=== PATIENT | male | born 1955 | race Two or more races ===

== ENCOUNTER 2022-05-25 09:40 | Day surgery (SDC) | payer OTHER ==
[~2022-05-25] VITALS: Ht 172.7 cm; Wt 90.7 kg
[~2022-05-25 09:40] MED LIST: AVAPRO300 MG PO; METFORMIN HCL1000 M2 PO
== END 2022-05-25 19:20 | disposition home or self-care (01) ==
LOC: CIR.AMB 09:40
PROVIDERS: ATTEND Urology
DX: N47.1 Phimosis (principal); N47.7 Other inflammatory diseases of prepuce; Z20.822 Contact with and (suspected) exposure to COVID-19; E11.9 Type 2 diabetes mellitus without complications; I10 Essential (primary) hypertension; Z79.84 Long term (current) use of oral hypoglycemic drugs

== ENCOUNTER 2022-06-25 21:26 | Inpatient (IN) | payer OTHER ==
[~2022-06-25] VITALS: Ht 165.1 cm; Wt 113.4 kg
[2022-06-29] MEDS ORDERED: MOTION SICKNESS25 M5 (08:35)
[2022-06-29] MEDS ORDERED: IRBESARTAN150 MG (08:36)
[2022-06-29] MEDS ORDERED: AMLODIPINE BESYL5 MG (08:36)
[2022-06-29] MEDS ORDERED: ONDANSETRON HCL4 MG (08:36)
[2022-06-29] MEDS ORDERED: ALBUTEROL S5 MG/1 ML (08:36)
[2022-07-05] MEDS ORDERED: BENZONATATE100 MG PO (09:25)
[2022-07-05] MEDS ORDERED: AVAPRO300 MG PO (09:25)
[2022-07-05] MEDS ORDERED: LIPITOR40 MG PO (09:26)
[2022-07-05] MEDS ORDERED: ELIQUIS2.5 MG PO (09:26)
== END 2022-07-05 17:23 | disposition home or self-care (01) | DRG 441 ==
LOC: ER 21:26 → MEDJ 06-26 11:51 → ICU-2 06-26 11:51 → MEDJ 06-28 14:12
PROVIDERS: ADMIT Internal Medicine; ATTEND Internal Medicine
PROC: B24BYZZ Ultrasonography of Heart with Aorta using Other Contrast (ICD-10-PCS; 2022-06-26)
PROC: BF37ZZZ Magnetic Resonance Imaging (MRI) of Pancreas (ICD-10-PCS; 2022-06-27)
PROC: B24BZZ4 Ultrasonography of Heart with Aorta, Transesophageal (ICD-10-PCS; principal; 2022-07-01)
DX: E80.6 Other disorders of bilirubin metabolism (principal); I63.211 Cerebral infarction due to unspecified occlusion or stenosis of right vertebral artery; D59.9 Acquired hemolytic anemia, unspecified; E66.09 Other obesity due to excess calories; Z68.41 Body mass index [BMI] 40.0-44.9, adult; N39.0 Urinary tract infection, site not specified; B96.20 Unspecified Escherichia coli [E. coli] as the cause of diseases classified elsewhere; I10 Essential (primary) hypertension; E11.9 Type 2 diabetes mellitus without complications; Z79.84 Long term (current) use of oral hypoglycemic drugs
CPT/HCPCS: 70544

== ENCOUNTER 2025-10-08 06:56 | Outpatient (CLI) | payer OTHER ==
[~2025-10-08 06:56] MED LIST changes: +ALBUTEROL S5 MG/1 ML; +AMLODIPINE BESYL5 MG; +BENZONATATE100 MG PO; +ELIQUIS2.5 MG PO; +IRBESARTAN150 MG; +LIPITOR40 MG PO; +MOTION SICKNESS25 M5; +ONDANSETRON HCL4 MG
== END 2025-10-08 06:57 | disposition home or self-care (01) ==
LOC: NUCLEAR 06:56
PROVIDERS: ATTEND Psychiatry & Neurology Neurology
DX: G30.1 Alzheimer's disease with late onset (principal)
CPT/HCPCS: 78814; A9552